=== PATIENT | male | born 1990 | race Caucasian/White ===

== ENCOUNTER 2023-12-21 17:11 | Emergency (ER) | payer OTHER ==
[~2023-12-21] VITALS: Ht 188 cm; Wt 114.5 kg
[2023-12-21 19:48] VITALS: BP 129/82; TEMP 98.1; O2SAT 99
== END 2023-12-21 21:30 | disposition left against medical advice (07) ==
LOC: M ED 17:11
DX: Z53.21 Procedure and treatment not carried out due to patient leaving prior to being seen by health care provider (principal)

== ENCOUNTER 2025-11-07 05:49 | Emergency (ER) | payer OTHER ==
[~2025-11-07] VITALS: Ht 185.4 cm; Wt 109.1 kg
[2025-11-07] MEDS ORDERED: AMOX875T2 PO (11:37)
[2025-11-07] MEDS ORDERED: IBUP80TA PO (11:37)
[2025-11-07 11:40] VITALS: BP 133/89; TEMP 98; O2SAT 98
== END 2025-11-07 11:41 | disposition home or self-care (01) ==
LOC: M ED 05:49
DX: H66.90 Otitis media, unspecified, unspecified ear (principal); Z79.2 Long term (current) use of antibiotics; Z79.1 Long term (current) use of non-steroidal anti-inflammatories (NSAID)